=== PATIENT | female | born 1975 | race Caucasian/White ===

== ENCOUNTER 2017-07-10 12:04 | Emergency (ER) | payer MEDICAID ==
[~2017-07-10] VITALS: Wt 82.7 kg
[2017-07-10] MEDS ORDERED: ONDANSETRON (ODT) 4 MG TAB ODT STA (14:12)
[2017-07-10] MEDS ORDERED: HYDROCODONE/APAP (5/325) TAB PO ONE (14:30)
--- NOTE | 2017-07-10 15:20 | ERD ---
ER Documentation Chief Complaint Date/Time DATE: 07/10/17 TIME: 15:14 Chief Complaint n/v, back pain, dysuria HPI This is a 41-year-old female who presents to the emergency department today complaining of nausea vomiting, back pain and pain with urination for the past 3 days. States she is taken Advil with limited improvement in symptoms. Denies any fevers or chills.Denies any trauma. ROS All systems reviewed and are negative except as per history of present illness. Medications Home Meds Active Scripts Ondansetron Hcl* (Zofran*) 4 Mg Tablet, 4 MG PO Q6H for NAUSEA AND/OR VOMITING, #30 TAB Prov:ANNABELLA LEWIS PA-C 07/10/17 Cephalexin* (Keflex*) 500 Mg Capsule, 500 MG PO QID for 7 Days, CAP Prov:ANNABELLA LEWIS PA-C 07/10/17 Ibuprofen* (Motrin*) 600 Mg Tab, 600 MG PO Q6, #30 TAB Prov:ANNABELLA LEWIS PA-C 07/10/17 Allergies Allergies: Coded Allergies: No Known Allergy (Unverified , 07/10/17) PMhx/Soc Anesthesia Reaction: No Hx Neurological Disorder: No Hx Respiratory Disorders: No Hx Cardiac Disorders: No Hx Psychiatric Problems: No Hx Miscellaneous Medical Probl: Yes (DM) Hx Alcohol Use: No Hx Substance Use: No Hx Tobacco Use: No Smoking Status: Never smoker Physical Exam Vitals Vital Signs Date Time Temp Pulse Resp B/P Pulse Ox O2 Delivery O2 Flow Rate FiO2 07/10/17 12:18 97.9 77 20 138/67 98 Physical Exam Const: obese, NAD Head: Atraumatic Eyes: Normal Conjunctiva ENT: Normal External Ears, Nose and Mouth. Neck: Full range of motion..~ No meningismus. Resp: Clear to auscultation bilaterally. no absent breath sounds. no wheezing Cardio: Regular rate and rhythm, no murmurs Abd: Soft, non tender, non distended. Normal bowel sounds Skin: No petechiae or rashes Back: thoracic spine no midline tenderness. bilateral paraspinal tenderness. Ext: No cyanosis, or edema Neur: Awake and alert Psych: Normal Mood and Affect Results 24 hrs Laboratory Tests Test 07/10/17 14:50 Urine Color MARTA Urine Clarity SLIGHTLY CLOUDY Urine pH 5.0 Urine Specific [place] 1.024 Urine Ketones NEGATIVEmg/dL Urine Nitrite NEGATIVEmg/dL Urine Bilirubin NEGATIVEmg/dL Urine Urobilinogen 1+mg/dL Urine Leukocyte Esterase 2+Berto/ul Urine Microscopic RBC 2/HPF Urine Microscopic WBC > 182/HPF Urine Squamous Epithelial Cells FEW/HPF Urine Bacteria FEW/HPF Urine Mucus FEW/HPF Urine Hemoglobin NEGATIVEmg/dL Urine Glucose 1+mg/dL Urine Total Protein NEGATIVEmg/dl Current Medications Medications (Trade) Dose Ordered Sig/Jaiden Route PRN Reason Start Time Stop Time Status Last Admin Dose Admin Acetaminophen/ Hydrocodone Bitart ([place] (5/325)) 1 tab ONCE ONCE PO 07/10/17 14:30 07/10/17 14:31 DC 07/10/17 14:22 Ondansetron HCl (Zofran Odt) 4 mg ONCE STAT ODT 07/10/17 14:12 07/10/17 14:13 DC 07/10/17 14:21 Procedures/MDM This 41-year-old female who presents the emergency department today complaining of nausea vomiting, back pain and dysuria for the past 3 days. On physical exam patient had some paraspinal tenderness. She does not have specific CVA tenderness however I did obtain a UA and urine test. UAShows 2+ leukocyte esterase and greater than 182 microscopic white blood cells. Negative nitrates. urine test is negative. Symptoms of dysuria, nausea and back pain most consistent with her positive urinary tract infection.Patient is afebrile and otherwise well-appearing. She has no true CVA tenderness and I have low suspicion for pyelonephritis or nephrolithiasis at this time. Low Suspicion for cauda equina or abscess, acute fracture as there has been no traumaShe has no loss of bowel or bladder control. Patient was given [place], Zofran here in the emergency department.I went to check on the patient she was walking around the emergency department on her phone in no acute distress. Patient will be given a prescription for Motrin, Zofran, Keflex. At this time the patient is stable for discharge and outpatient management. Patient should follow up with their PCP in the next 1-2 days. They may return to the emergency department sooner for any persistent or worsening of symptoms. Patient understood and agreed with the plan. Departure Diagnosis: Primary Impression: UTI (urinary tract infection) Urinary tract infection type: site unspecified Hematuria presence: without hematuria Qualified Code: N39.0 - Urinary tract infection without hematuria, site unspecified Condition: ANNABELLA Tellez PA-C Jul 10, 2017 15:20
[2017-07-10 15:40] LABS: ADD UMIC YES; UR ASCORBIC ACID NEGATIVE (NEGATIVE); UR BACTERIA FEW /HPF (NONE SEEN); UR BILIRUBIN (Dip) NEGATIVE (NEGATIVE); UR BLOOD (Dip) NEGATIVE (NEGATIVE); UR CLARITY SLIGHTLY CLOUDY (CLEAR); UR COLOR AMBER (YELLOW); UR GLUCOSE (Dip) 1+ mg/dL (NEGATIVE); UR KETONES (Dip) NEGATIVE (NEGATIVE); UR LEUKOCYTE ESTERASE (Dip) 2+ Leu/ul (NEGATIVE); UR MUCUS FEW /HPF (NONE SEEN); UR NITRITE (Dip) NEGATIVE (NEGATIVE); UR RBC 2 /HPF (0-5); UR SPECIFIC GRAVITY (Dip) 1.024 (1.003-1.030); UR SQUAMOUS EPITHELIAL CELL FEW /HPF (FEW); UR TOTAL PROTEIN (Dip) NEGATIVE (NEGATIVE); UR UROBILINOGEN (Dip) 1+ mg/dL (NEGATIVE)
[2017-07-10] MEDS ORDERED: IBUP-1542 PO (15:50)
[2017-07-10] MEDS ORDERED: CEPH-443 PO (15:51)
[2017-07-10] MEDS ORDERED: ONDA4TAB8 PO (15:52)
== END 2017-07-10 16:06 | disposition home or self-care (01) ==
LOC: FTE 12:04
DX: N39.0 Urinary tract infection, site not specified (principal); E11.9 Type 2 diabetes mellitus without complications
CPT/HCPCS: 81001; Z7502; Z7610; 99284

== ENCOUNTER 2017-08-21 15:58 | Emergency (ER) | payer BC, MEDICAID ==
[~2017-08-21] VITALS: Ht 162.6 cm; Wt 90.0 kg
[~2017-08-21 15:58] MED LIST: CEPH-443 PO; IBUP-1542 PO; ONDA4TAB8 PO
[2017-08-21 16:00] VITALS: Ht 162.6 cm; Wt 90.0 kg
[2017-08-21] MEDS ORDERED: IBUPROFEN 600 MG TAB PO ONE (17:30)
--- NOTE | 2017-08-21 18:04 | RADRPT ---
PROCEDURE: XR Thoracic Spine. CLINICAL INDICATION: Back pain. TECHNIQUE: Three views. Frontal, lateral, and lateral swimmers. COMPARISON: None available FINDINGS: There is normal stature and alignment of the vertebrae. There is no fracture. There is no lytic or blastic lesion. The disk height is normal. The paravertebral soft tissues are unremarkable. IMPRESSION: 1. Unremarkable images of the thoracic spine. RPTAT: QQ .Skyler Cruz MD, MD Date Time Electronically viewed and signed by .Skyler Cruz MD, MD on 08/21/2017 18:04 .R/
[2017-08-21] MEDS ORDERED: IBUP-1542 PO (18:11)
--- NOTE | 2017-08-21 18:17 | ERD ---
ER Documentation Chief Complaint Date/Time DATE: 08/21/17 TIME: 18:13 Chief Complaint back pain x 1 week HPI This is a 41-year-old female presents to the ER with mid back pain that started a week ago. Patient denies any trauma. Pain is sharp and constant it is nonradiating. Not had any fevers or chills. She denies any lower back pain or neck pain. Denies any recent cough or cold she denies any chest pain or shortness of breath. ROS 12 point review of systems was done, all negative except per HPI. Medications Home Meds Active Scripts Ibuprofen* (Motrin*) 600 Mg Tab, 600 MG PO Q6, #30 TAB Prov:VIKAS PENA 08/21/17 Ondansetron Hcl* (Zofran*) 4 Mg Tablet, 4 MG PO Q6H for NAUSEA AND/OR VOMITING, #30 TAB Prov:ANNABELLA LEWIS PA-C 07/10/17 Cephalexin* (Keflex*) 500 Mg Capsule, 500 MG PO QID for 7 Days, CAP Prov:ANNABELLA LEWIS PA-C 07/10/17 Ibuprofen* (Motrin*) 600 Mg Tab, 600 MG PO Q6, #30 TAB Prov:ANNABELLA LEWIS PA-C 07/10/17 Allergies Allergies: Coded Allergies: No Known Allergy (Unverified , 07/10/17) PMhx/Soc Anesthesia Reaction: No Hx Neurological Disorder: No Hx Respiratory Disorders: No Hx Cardiac Disorders: No Hx Psychiatric Problems: No Hx Miscellaneous Medical Probl: Yes (DM) Hx Alcohol Use: No Hx Substance Use: No Hx Tobacco Use: No Smoking Status: Never smoker Physical Exam Vitals Vital Signs Date Time Temp Pulse Resp B/P Pulse Ox O2 Delivery O2 Flow Rate FiO2 08/21/17 16:00 98.7 86 18 136/74 99 Physical Exam GENERAL: The patient is well developed and appropriate for usual state of health , in no apparent distress. NECK: C-spine is soft and supple. There is no cervical lymphadenopathy. CHEST: Clear to auscultation bilaterally. There are no rales, wheezes or rhonchi. HEART: Regular rate and rhythm. No murmurs, clicks, rubs or gallops. ABDOMEN: Soft, nontender and nondistended. Good bowel sounds. No rebound or guarding. No gross peritonitis. No gross organomegaly or masses. No Grimes sign or McBurney point tenderness. No pulsatile abdominal mass. BACK: No midline or flank tenderness. Tender to palpation from T1-T6. Tense paraspinal muscles. Negative leg raise test. No step- offs. No lumbar spine tenderness. Normal range of motion of back NEURO: Alert and oriented. SKIN:The skin is warm and dry. Results 24 hrs Current Medications Medications (Trade) Dose Ordered Sig/Jaiden Route PRN Reason Start Time Stop Time Status Last Admin Dose Admin Ibuprofen (Motrin) 600 mg ONCE ONCE PO 08/21/17 17:30 08/21/17 17:31 DC 08/21/17 17:27 [place] [id number] Radiology Main Line: [phone] DIAGNOSTIC IMAGING REPORT Patient: MONICO MARIE : 1975 Age: 41 Sex: F MR #: [id number] DOS: 08/21/17 0000 Ordering MD: VIKAS PENA PA-C Location: [facility] Room/Bed: PROCEDURE: XR Thoracic Spine. CLINICAL INDICATION: Back pain. TECHNIQUE: Three views. Frontal, lateral, and lateral swimmers. COMPARISON: None available FINDINGS: There is normal stature and alignment of the vertebrae. There is no fracture. There is no lytic or blastic lesion. The disk height is normal. The paravertebral soft tissues are unremarkable. IMPRESSION: 1. Unremarkable images of the thoracic spine. RPTAT: QQ .Skyler Cruz MD, Date Time Electronically viewed and signed by .Skyler Cruz MD, on 08/21/2017 18:04 .R/ CC: VIKAS PENA Procedures/MDM This is a 41-year-old female presents to the ER with thoracic back pain. Suspicion for fracture or dislocation is low. Patient does not have any lower back pain suspicion for cauda equina, epidural abscess, discitis is low. Patient is also afebrile extremely well-appearing with range of motion of her back. Patient with ibuprofen. She is to follow-up with her primary care doctor within 1-2 days or return to ER sooner if symptoms worsen. My medical decision making was shared with the patient, she understands and agrees with plan. Departure Diagnosis: Primary Impression: Back pain Condition: Stable Patient Instructions: Back Pain (Acute Or Chronic) Additional Instructions: Llame al doctor MAMONICO y sravan mary SARIAH PARA DENTRO DE 1-2 CRUZ.Dgale a la secretaria que nosotros le instruimos hacer esta sariah.Avise o llame si eisenberg condicin se empeora antes de la sariah. Regresa aqui si peor o no mejor. VIKAS PENA Aug 21, 2017 18:17
== END 2017-08-21 18:25 | disposition home or self-care (01) ==
LOC: FTE 15:58
DX: M54.6 Pain in thoracic spine (principal); E11.9 Type 2 diabetes mellitus without complications
CPT/HCPCS: 72072; Z7502; Z7610

== ENCOUNTER 2019-06-17 09:13 | Emergency (ER) | payer SELFPAY ==
[~2019-06-17] VITALS: Ht 162.6 cm; Wt 128.7 kg
[~2019-06-17 09:13] MED LIST changes: +DICL100G37 TOP; +NAPR-985 PO
[2019-06-17 09:17] VITALS: Ht 162.6 cm; Wt 128.7 kg
--- NOTE | 2019-06-17 10:13 | ERD ---
ER Documentation Chief Complaint Chief Complaint right knee pain x 3 weeks HPI 43-year-old female presenting with right knee pain x3 weeks. She took ibuprofen yesterday with no alleviation. Denies any numbness or tingling and has no recent falls or injuries. Denies swelling. She has pain with ambulation. Medical history is diabetes [id number]. NKDA. Surgical history C- section. Social history denies ROS All systems reviewed and are negative except as per history of present illness. Medications Home Meds Active Scripts Diclofenac Sodium* (Voltaren* Gel) 1% -100 Gm Gel, 2 GM TOP QID, #1 TUB Prov:BARBRA STEARNS PA-C 06/17/19 Naproxen* (Naprosyn*) 500 Mg Tablet, 500 MG PO BID PRN for PAIN AND/OR INFLAMMATION, #30 TAB Prov:BARBRA STEARNS PA-C 06/17/19 Ibuprofen* (Motrin*) 600 Mg Tab, 600 MG PO Q6, #30 TAB Prov:VIKAS PENA 08/21/17 Ondansetron Hcl* (Zofran*) 4 Mg Tablet, 4 MG PO Q6H for NAUSEA AND/OR VOMITING, #30 TAB Prov:ANNABELLA LEWIS PA-C 07/10/17 Cephalexin* (Keflex*) 500 Mg Capsule, 500 MG PO QID for 7 Days, CAP Prov:ANNABELLA LEWIS PA-C 07/10/17 Ibuprofen* (Motrin*) 600 Mg Tab, 600 MG PO Q6, #30 TAB Prov:ANNABELLA LEWIS PA-C 07/10/17 Allergies Allergies: Coded Allergies: No Known Allergy (Unverified , 06/17/19) PMhx/Soc Anesthesia Reaction: No Hx Neurological Disorder: No Hx Respiratory Disorders: No Hx Cardiac Disorders: No Hx Psychiatric Problems: No Hx Miscellaneous Medical Probl: No Hx Alcohol Use: No Hx Substance Use: No Hx Tobacco Use: No Smoking Status: Never smoker FmHx Family History: No diabetes, No coronary disease, No other Physical Exam Vitals Vital Signs Date Temp Pulse Resp B/P (MAP) Pulse Ox O2 O2 Flow FiO2 Time Delivery Rate 06/17/19 98.0 86 18 132/66 96 09:17 (88) Physical Exam GENERAL: The patient is well-appearing, well-nourished, in no acute distress CHEST: Clear to auscultation bilaterally. There are no rales, wheezes or rhonchi. HEART: Regular rate and rhythm. No murmurs, clicks, rubs or gallops. EXTREMITIES: No obvious deformity noted to the right knee. No valgus or varus deformity. Normal strength 5 out of 5 with flexion and extension. Compartments soft. No swelling noted to the calf NEUROLOGIC: Alert and oriented. Cranial nerves II through XII intact. Motor strength in all 4 extremities with 5 out of 5 strength. Sensation grossly intact. Normal speech and gait. SKIN: There is no apparent rash or petechiae. The skin is warm and dry. Procedures/MDM DIAGNOSTIC IMAGING REPORT Patient: MONICO MARIE : 1975 Age: 43 Sex: F MR #: [id number] DOS: 06/17/19 0929 Ordering MD: ELLIOT STEARNS PA-C Location: [facility] Room/Bed: PROCEDURE: Right knee x-ray CLINICAL INDICATION: Knee pain TECHNIQUE: AP, lateral and oblique views of the knee were obtained. COMPARISON: None FINDINGS: There is normal mineralization. No acute fracture or dislocation is seen. There is joint space narrowing, subchondral sclerosis seen within the knee joint. There are also small osteophytes. There is no significant soft tissue swelling. There is a small right knee joint effusion. RPTAT: AA IMPRESSION: Mild degenerative changes of the right knee. Small right knee joint effusion. No acute fracture. MDM: 43-year-old female presenting with knee pain. Patient has findings consistent with arthritis. I have low suspicion for acute location. I have low suspicion for vascular injury. Patient is discharged with supportive medications and told to follow-up with primary care within 1 to 2 days for close evaluation. Patient is told symptoms change or worsen to return immediately to the ER. All questions answered at discharge Departure Diagnosis: Primary Impression: Arthritis Condition: Stable Patient Instructions: Osteoarthritis Referrals: [facility] YOU HAVE RECEIVED A MEDICAL SCREENING EXAM AND THE RESULTS INDICATE THAT YOU DO NOT HAVE A CONDITION THAT REQUIRES URGENT TREATMENT IN THE EMERGENCY DEPARTMENT. FURTHER EVALUATION AND TREATMENT OF YOUR CONDITION CAN WAIT UNTIL YOU ARE SEEN IN YOUR DOCTORS OFFICE WITHIN THE NEXT 1-2 DAYS. IT IS YOUR RESPONSIBILITY TO M RONN AN APPOINTMENT FOR FOLOW-UP CARE. IF YOU HAVE A PRIMARY DOCTOR --you should call your primary doctor and schedule an appointment IF YOU DO NOT HAVE A PRIMARY DOCTOR YOU CAN CALL OUR PHYSICIAN REFERRAL HOTLINE AT IF YOU CAN NOT AFFORD TO SEE A PHYSICIAN YOU CAN CHOSE FROM THE FOLLOWING [facility] [address] [facility] [address] [facility] [facility] [address] [facility] [address] [facility] [address] [facility] [facility]. [address] Additional Instructions: FOLLOW UP WITH YOUR PRIMARY CARE PHYSICIAN TOMORROW.Return to this facility if you are not improving as expected. BARBRA STEARNS PA-C Jun 17, 2019 10:13
== END 2019-06-17 10:16 | disposition home or self-care (01) ==
LOC: FTE 09:13
DX: M19.90 Unspecified osteoarthritis, unspecified site (principal); E11.9 Type 2 diabetes mellitus without complications
CPT/HCPCS: 73562